=== PATIENT | female | born 1995 | race Caucasian/White ===

== ENCOUNTER 2024-09-09 09:03 | Outpatient (AMB) | payer OTHER, SELFPAY ==
--- NOTE | 2024-09-09 09:05 | A.OFFVIS_ITS ---
Vital Signs 09/09/24 09:08 Height 5 ft Weight 127 lb BMI 24.8 BP 118/68 Blood Pressure Location Lt brachial Position Sitting Pulse 69 Pulse Source Pulse Oximeter Pulse Oximetry (%) 98 Oxygen Delivery Method Room Air Intake Visit Reasons: RA Intake Note: Patient presents for follow up on RA. Allergies wheat Allergy (Mild, Verified 09/09/24 09:09) Stomach Upset gluten intolerance Allergy (Mild, Uncoded 09/09/24 09:09) Stomach Upset HPI HPI RA: Details: She has not had Humira in a few weeks. She is running low on methotrexate. She recently has not had any flares. She had a mild cold 2-3 weeks ago. Review of Systems Const All systems reviewed & are unremarkable except as noted in HPI and below Physical Exam Vital Signs: Last Vital Signs Pulse 69 09/09/24 09:08 BP 118/68 09/09/24 09:08 Pulse Ox 98 09/09/24 09:08 Oxygen Delivery Method Room Air 09/09/24 09:08 BMI result Body Mass Index 24.8 Const Other: General: Comfortable CVS: RRR Respiratory: clear to auscultation bilaterally. Good respiratory effort Skin: No lesions seen MSK: No tenderness of any joint. No synovitis. Good range of motion of upper extremities and lower extremities. Assessment & Plan Assessment & Plan (1) Rheumatoid arthritis: Comment: Seropositive. Previously she was treated with hydroxychloroquine from 2019 to 03/20/2024, methotrexate 2021October 2021 ran out of prescription then restarted 10/21/2023 to present, Humira started 03/20/2023 to present. She is currently in remission on current regimen. She ran out of Humira few weeks ago. Code(s): M06.9 - Rheumatoid arthritis, unspecified Category: Medical Plan: Labs for disease and drug monitoring ordered on high-risk medication Continue Humira 40 mg every other week Continue methotrexate 20 mg once weekly continue folic acid 1 mg daily Return to clinic in 3 months (2) Other manager long term care (current) drug therapy: Code(s): Z79.899 - Other half-way (current) drug therapy Category: Medical Plan: See above Medications: New folic acid 1 mg PO DAILY 90 tabs 3RF adalimumab (Humira(CF) Pen) inject one - 40 mg/0.4 mL pen every 2 weeks subcut PA needed. Continuity of treatment 2 ea 2RF Coding Level of Care Code Est Pt Level 4 (70628) Complex EM visit Add On G2211 Diagnoses Rheumatoid arthritis M06.9 Other manager long term care (current) drug therapy Z79.899
[2024-09-09 09:08] VITALS: BP 118/68; PULSE 69; O2SAT 98; BMI 24.8
== END 2024-09-09 09:40 | disposition home or self-care (01) ==
PROVIDERS: Visit Provider Internal Medicine Rheumatology
DX: M06.9 Rheumatoid arthritis, unspecified (principal); Z79.899 Other long term (current) drug therapy
CPT/HCPCS: 99214

== ENCOUNTER 2024-09-09 09:03 | Outpatient (REF) | payer OTHER, SELFPAY ==
[2024-09-09 18:13] LABS: MANUAL DIFF FLAG NO
[2024-09-09 18:29] LABS: Rheumatoid Factor 42.3 IU/mL (<15.0)
[2024-09-09 18:30] LABS: Basophils Absolute Auto 0.1 X10*3/uL (0.0-0.2); Basophils Percent Auto 1.3 % (0-2); Eosinophils Absolute Auto 0.4 X10*3/uL (0.0-0.4); Eosinophils Percent Auto 9.8 % (0-4); Hematocrit 35.2 % (37.0-47.0); Hemoglobin 11.2 g/dl (12.0-16.0); Lymphocytes Absolute Auto 1.3 X10*3/uL (1.2-4.9); Lymphocytes Percent Auto 32.6 % (20-40); Mean Corpuscular HGB Conc 31.8 g/dl (31.0-35.0); Mean Corpuscular Hemoglobin 27.5 pg (27.0-33.0); Mean Corpuscular Volume 86.3 fL (80.0-98.0); Mean Platelet Volume 9.2 fL (9.4-12.3); Monocytes Absolute Auto 0.3 X10*3/uL (0.1-1.2); Monocytes Percent Auto 8.7 % (2-11); Neutrophils Absolute Auto 1.9 x10*3/uL (2.0-8.3); Neutrophils Percent Auto 47.6 % (45-73); Platelet Count 321 X10*3/uL (160-400); Red Blood Count 4.08 X10*6/uL (4.20-5.50); Red Cell Distribution Width 14.1 % (11.0-16.0); White Blood Count 3.9 X10*3/uL (4.8-10.8)
[2024-09-09 18:33] LABS: Alanine Aminotransferase 10 U/L (0-31); Aspartate Amino Transferase 19 U/L (5-31); C Reactive Protein < 0.04 mg/dL (< or = 0.50); Estimated Glomerular Filt Rate > 60
[2024-09-09 19:37] LABS: Erythrocyte Sedimentation Rate 12 MM/HR (0-20)
[2024-09-10 08:08] LABS: HBS Num1 13.33 mIU/mL (0-7.99); HBsAGNum1 0.44 S/CO (0.00-0.99); Hepatitis B Surface Antigen Negative (Negative); ~Hepatitis B Surface Antibody REACTIVE (Nonreactive)
[2024-09-10 08:59] LABS: HBc Num1 0.19 S/CO (0.00-0.79); Hepatitis B Core Antibody Nonreactive (Nonreactive); ~HepC Num1 0.16 S/CO (0.00-0.79); ~Hepatitis C Antibody Nonreactive (Nonreactive)
[2024-09-12 14:59] LABS: TS Negative Control Passed; TS Panel A 0; TS Panel B 0; TS Positive Control Passed; TSpotTB Negative (Negative)
[2024-09-14 21:13] LABS: Cyclic Citrullinated Peptide >250 UNITS
== END 2024-09-09 09:04 | disposition home or self-care (01) ==
LOC: HO.HKASLDS 09:03
PROVIDERS: Visit Provider Internal Medicine Rheumatology
DX: M06.9 Rheumatoid arthritis, unspecified (principal)
CPT/HCPCS: 36415; 82565; 84450; 84460; 85025; 85652; 86140; 86200; 86431; 86481; 86704; 86706; 86803; 87340

== ENCOUNTER 2024-12-31 09:47 | Outpatient (REF) | payer OTHER, SELFPAY ==
--- OUTSIDE RECORDS SUMMARY | 2024-12-31 10:33 | XMS_ITS | Encounter Summary ---
[facility] Address [address] [place] [address] Care Team Providers Care Firewall Engineer Name Role Phone Jessica Sigala MD Primary Care Provider Kaci Toth DO Primary Care Pro vider Unavailable Ruby Campbell MD Primary Care Provider Luz Marina Simpson MD Primary Care Provider [phone] Nilesh Oneal MD Primary Care Provider Encounter Details Date Type Department Care Team Description 07/09/2011 Sewing Trimmer Report Medical Records [address] [place] [address] Bakari Mendenhall Social History Tobacco Use Types Packs/Day Years Used Date Smoking Tobacco: Never Smokeless Tobacco: Never Alcohol Use Standard Drinks/Week Comments Not Asked 0 (1 standard drink = 0.6 oz pur e alcohol) Sex Assigned at Date Recorded Female 10/13/2020 12:25 PM EST Job Start Date Occupation Industry Not on file Not on file Not on file documented as of this encounter Plan of Treatment Not on file documented as of this encounter Visit Diagnoses Not on filedocumented in this encounter Care Teams Firewall Engineer Relationship Specialty Start Date End Date Jessica Sigala MD PCP - General 07/12/02 06/25/15 Kaci Kern DO PCP - General Internal Medicine 06/26/15 07/19/21 Ruby Campbell MD PCP - General Internal Medicine 07/20/21 04/07/22 Luz Marina Tapia MD [address] [place] [address] PCP - General Internal Medicine 04/08/22 06/05/22 Nilesh Oneal MD [address] [place] [address] PCP - General Internal Medicine 06/06/22 documented as of this encounter
--- OUTSIDE RECORDS SUMMARY | 2024-12-31 10:33 | XMS_ITS | Encounter Summary ---
[facility] Address [address] [place] [address] Care Team Providers Care Manager Drug Name Role Phone Jessica Sigala MD Primary Care Provider Kaci Toth DO Primary Care Pro vider Unavailable Ruby Campbell MD Primary Care Provider Luz Marina Simposn MD Primary Care Provider [phone] Nilesh Oneal MD Primary Care Provider Encounter Details Date Type Department Care Team Description 06/17/2011 Release of Information Medical Records [address] [place] [id number] Abstract, Provider Social History Tobacco Use Types Packs/Day Years [...] on filedocumented in this encounter Care Teams Manager Drug Relationship Specialty Start Date End Date Jessica Sigala MD PCP - General 07/12/02 06/25/15 Kaci Kern DO PCP - General Internal Medicine 06/26/15 07/19/21 Ruby Campbell MD PCP - General Internal Medicine 07/20/21 04/07/22 Luz Marina Tapia MD [address] [place] [address] PCP - General Internal Medicine 04/08/22 06/05/22 Nilesh Oneal MD [address] [place] [address] PCP - General Internal Medicine 06/06/22 documented as of this encounter
--- OUTSIDE RECORDS SUMMARY | 2024-12-31 10:33 | XMS_ITS | Encounter Summary ---
Author Organization [facility] Address [address] [place] [address] Care Team Providers Care Vice President Risk Management Name Role Phone Kaci Kern DO Primary Care Pro vider Unavailable Ruby Campbell MD Primary Care Provider Luz Marina Simpson MD Primary Care Provider Nilesh Oneal MD Primary Care Provider Encounter Details Date Type Department Care Team Description 10/31/2015 Pt. Referral Request [facility]em [address] [place] [address] [id number] Md Cem Social History Tobacco Use Types Packs/Day Years Used Date Smoking Tobacco: Never Smokeless Tobacco: Never Alcohol Use Standard Drinks/Week Comments No 0 (1 standard drink = 0.6 oz pur e alcohol) Sex Assigned at Date Recorded Female 10/13/2020 12:25 PM EST Job Start Date Occupation Industry Not on file Not on file Not on file documented as of this encounter Plan of Treatment Not on file documented as of this encounter Visit Diagnoses Not on filedocumented in this encounter Care Teams Vice President Risk Management Relationship Specialty Start Date End Date Kaci Kern DO PCP - General Internal Medicine 06/26/15 07/19/21 Ruby Campbell MD PCP - General Internal Medicine 07/20/21 04/07/22 Luz Marina Tapia MD [address] [place] [address] PCP - General Internal Medicine 04/08/22 06/05/22 Nilesh Oneal MD [address] [place] [address] PCP - General Internal Medicine 06/06/22 documented as of this encounter
--- OUTSIDE RECORDS SUMMARY | 2024-12-31 10:33 | XMS_ITS | Encounter Summary ---
[facility] Address [address] [place] [address] Care Team Providers Care Thermocouple Tester Name Role Phone Jessica Sigala MD Primary Care Provider Kaci Toth DO Primary Care Pro vider Unavailable Ruby Campbell MD Primary Care Provider Luz Marina Simpson MD Primary Care Provider [phone] Nilesh Oneal MD Primary Care Provider Encounter Details Date Type Department Care Team Description 04/30/2013 Mosaic Worker Report Medical Records [address] [place] [address] Jaycob Roman Social History Tobacco Use Types Packs/Day Years [...] on filedocumented in this encounter Care Teams Thermocouple Tester Relationship Specialty Start Date End Date Jessica Sigala MD PCP - General 07/12/02 06/25/15 Kaci Kern DO PCP - General Internal Medicine 06/26/15 07/19/21 Ruby Campbell MD PCP - General Internal Medicine 07/20/21 04/07/22 Luz Marina Tapia MD [address] [place] [address] PCP - General Internal Medicine 04/08/22 06/05/22 Nilesh Oneal MD [address] [place] [address] PCP - General Internal Medicine 06/06/22 documented as of this encounter
--- OUTSIDE RECORDS SUMMARY | 2024-12-31 10:34 | XMS_ITS | Encounter Summary ---
[facility] Address [address] [place] [address] Care Team Providers Care Property Economist Name Role Phone Kaci Kern DO Primary Care Pro vider Ruby Brambila MD Primary Care Provider Luz Marina Simpson MD Primary Care Provider [phone] Nilesh Oneal MD Primary Care Provider Reason for Visit * Reason Comments E-prescribe Rx Request Encounter Details Date Type Department Care Team Description 02/20/2019 Refill Adult Medicine [address] [address] Angélica Archer PA-C E-prescribe Rx Request Social History Tobacco Use Types Packs/Day Years Used Date Smoking Tobacco: Never Smokeless Tobacco: Never Alcohol Use Standard Drinks/Week Comments Yes 0 (1 standard drink = 0.6 oz pur e alcohol) occ Sex Assigned at Date Recorded Female 10/13/2020 12:25 PM EST Job Start Date Occupation Industry Not on file Not on file Not on file documented as of this encounter Miscellaneous Notes * Telephone Encounter - Deborah Carlisle - 02/22/2019 9:55 AM EDT Patient would like script to be: E-PRESCRIBED/FAXED TO PHARMACY WHEN WAS THE PATIENT'S LAST APPOINTMENT IN ADULT MEDICINE? 2-- WHEN WAS THE LAST TIME THE PATIENT SAW THEIR PCP? N/a Does patient have an upcoming appointment? No-unable to reach left voicemaill to call for appointment due to refill request. Appt due (THE MEDICATION REQUESTED IS ON THE MED LIST ABOVE) All of the medications requested were on the CURRENT MEDS list Did you check the Pharmacy information above?: YES Patient wants: 30 -day supply Is this a mail order prescription request ? NO If the refill is from a FAXED refill request what is the RX # listed on the fax? N/A Patients current insurance carrier is: Payor: [facility]/[employer] FFS / Plan: [employer] $25 [employer] [id number] / ProductType: [employer] [id number] documented in this encounter Plan of Treatment Not on file documented as of this encounter Visit Diagnoses Not on filedocumented in this encounter Care Teams Property Economist Relationship Specialty Start Date End Date Kaci Kern DO PCP - General Internal Medicine 06/26/15 07/19/21 Ruby Campbell MD PCP - General Internal Medicine 07/20/21 04/07/22 Luz Marina Tapia MD [address] [place] [address] PCP - General Internal Medicine 04/08/22 06/05/22 Nilesh Oneal MD [address] [place] [phone] PCP - General Internal Medicine 06/06/22 documented as of this encounter
--- OUTSIDE RECORDS SUMMARY | 2024-12-31 10:34 | XMS_ITS | Encounter Summary ---
Author Organization [facility] Address [address] [place] [address] Care Team Providers Care Technical Communicator Name Role Phone Nilesh Oneal MD Primary Care Provider Encounter Details Date Type Department Care Team Description 10/16/2023 Run Boat Operator Report Medical Records [address] [place] [address] Alvino Baires MD Social History Tobacco Use Types Packs/Day Years [...] on filedocumented in this encounter Care Teams Technical Communicator Relationship Specialty Start Date End Date Nilesh Oneal MD [address] [place] [address] PCP - General Internal Medicine 06/06/22 documented as of this encounter
--- OUTSIDE RECORDS SUMMARY | 2024-12-31 10:34 | XMS_ITS | Encounter Summary ---
Author Organization [facility] Address [address] [place] [address] Care Team Providers Care Rn Labor Delivery Name Role Phone Nilesh Oneal MD Primary Care Provider Encounter Details Date Type Department Care Team Description 01/17/2023 Refill Adult Medicine [facility] [address] [place] [address] Nilesh Oneal MD [address] [place] [address] Social History Tobacco Use Types Packs/Day Years [...] encounter Miscellaneous Notes * Telephone Encounter - Nataliya Lacy M.A. - 01/17/2023 10:48 AM EDT Response sent to schedule prior to processing refill request, await reply to route accordingly. documented in this encounter Plan of Treatment Not on file documented as of this encounter Visit Diagnoses Not on filedocumented in this encounter Care Teams Rn Labor Delivery Relationship Specialty Start Date End Date Nilesh Oneal MD [address] [place] [phone] PCP - General Internal Medicine 06/06/22 documented as of this encounter
--- OUTSIDE RECORDS SUMMARY | 2024-12-31 10:34 | XMS_ITS | Encounter Summary ---
Author Organization [facility] Address [address] [place] [address] Care Team Providers Care Parts Assembler Name Role Phone Kaci Kern DO Primary Care Pro vider Unavailable Ruby Campbell MD Primary Care Provider Luz Marina Simpson MD Primary Care Provider [phone] Nilesh Oneal MD Primary Care Provider Reason for Visit * Reason Onset Date Comments Prior Authorization 05/03/2020 Plaquenil AP PROVED Encounter Details Date Type Department Care Team Description 05/03/2020 Telephone Rheumatology - [address] [address] Javier Peterson MD Prior Authorization (Plaquenil APPROVED) Social History Tobacco Use Types Packs/Day Years [...] encounter Miscellaneous Notes * Telephone Encounter - Feng Kapadia M.A. - 05/03/2020 8:44 AM EDT Plaquenil Tab approved from 05/02/20 to 10/30/20. PA # not provided PA done through [facility] on [employer] ID# [id number] Script to local [place] Papers filed. documented in this encounter Plan of Treatment Not on file documented as of this encounter Visit Diagnoses Diagnosis Seropositive rheumatoid arthritis (HCC) Rheumatoid arthritis documented in this encounter Care Teams Parts Assembler Relationship Specialty Start Date End Date Kaci Kern DO PCP - General Internal Medicine 06/26/15 07/19/21 Ruby Campbell MD PCP - General Internal Medicine 07/20/21 04/07/22 Luz Marina Tapia MD [address] [place] [address] PCP - General Internal Medicine 04/08/22 06/05/22 Nilesh Oneal MD [address] [place] [address] PCP - General Internal Medicine 06/06/22 documented as of this encounter
--- OUTSIDE RECORDS SUMMARY | 2024-12-31 10:34 | XMS_ITS | Encounter Summary ---
Author Organization [facility] Address [address] [place] [address] Care Team Providers Care Progressive Care Unit Registered Nurse Name Role Phone Nilesh Oneal MD Primary Care Provider Encounter Details Date Type Department Care Team Description 12/24/2022 Dubbing Machine Operator Report Medical Records [address] [place] [address] Angela Bello Social History Tobacco Use Types Packs/Day Years [...] on filedocumented in this encounter Care Teams Progressive Care Unit Registered Nurse Relationship Specialty Start Date End Date Nilesh Oneal MD [address] [place] [address] PCP - General Internal Medicine 06/06/22 documented as of this encounter
--- OUTSIDE RECORDS SUMMARY | 2024-12-31 10:34 | XMS_ITS | Encounter Summary ---
Author Organization [facility] Address [address] [place] [address] Care Team Providers Care Track And Field Coach Name Role Phone Jessica Sigala MD Primary Care Provider Kaci Toth DO Primary Care Pro vider Unavailable Ruby Campbell MD Primary Care Provider Luz Marina Simpson MD Primary Care Provider [phone] Nilesh Oneal MD Primary Care Provider Encounter Details Date Type Department Care Team Description 04/13/2015 Engagement Specialist Report Medical Records [address] [place] [address] Jaycob Roman Social History Tobacco Use Types [...] on filedocumented in this encounter Care Teams Track And Field Coach Relationship Specialty Start Date End Date Jessica Sigala MD PCP - General 07/12/02 06/25/15 Kaci Kern DO PCP - General Internal Medicine 06/26/15 07/19/21 Ruby Campbell MD PCP - General Internal Medicine 07/20/21 04/07/22 Luz Marina Tapia MD [address] [place] [address] PCP - General Internal Medicine 04/08/22 06/05/22 Nilesh Oneal MD [address] [place] [address] PCP - General Internal Medicine 06/06/22 documented as of this encounter
--- OUTSIDE RECORDS SUMMARY | 2024-12-31 10:34 | XMS_ITS | Encounter Summary ---
[facility] Address [address] [place] [address] Care Team Providers Care Resident Surgeon Name Role Phone Kaci Kern DO Primary Care Pro vider Ruby Brambila MD Primary Care Provider Luz Marina Simpson MD Primary Care Provider [phone] Nilesh Oneal MD Primary Care Provider Reason for Visit * Reason Comments E-prescribe Rx Request Encounter Details Date Type Department Care Team Description 02/07/2021 Refill Adult Medicine [address] [address] Yuli Gonzalez PA-C E-prescribe Rx Request Social History Tobacco Use Types Packs/Day Years Used Date Smoking Tobacco: Never Smokeless Tobacco: Never Alcohol Use Standard Drinks/Week Comments Yes 0 (1 standard drink = 0.6 oz pur e alcohol) occ Sex Assigned at Date Recorded Female 10/13/2020 12:25 PM EST Job Start Date Occupation Industry Not on file Not on file Not on file COVID-19 Exposure Response Date Recorded In the last month, have you been in contact with someone who was confirmed or suspected to have Coronavirus / COVID-19? No / Unsure 02/05/2021 10:31 AM EDT documented as of this encounter Miscellaneous Notes * Telephone Encounter - Terra Verde M.A. - 02/07/2021 9:42 AM EDT Last office visit 12/08/20 Pt with dx of Asthma * Telephone Encounter - Mary Skaggs - 02/07/2021 8:26 AM EDT Patient would like script to be: E-PRESCRIBED/FAXED TO PHARMACY WHEN WAS THE PATIENT'S LAST APPOINTMENT IN ADULT MEDICINE? 12/08/20 WHEN WAS THE LAST TIME THE PATIENT SAW THEIR PCP? 12/09/19 Does patient have an upcoming appointment? No lmom asking patient to call and schedule follow up (THE MEDICATION REQUESTED IS ON THE MED [...] N/A Patients current insurance carrier is: Payor: [facility] SELF FUNDED / Plan: HMO $25 RON[place] 1500 / Product Type: HMO [id number] documented in this encounter Plan of Treatment Not on file documented as of this encounter Visit Diagnoses Not on filedocumented in this encounter Care Teams Resident Surgeon Relationship Specialty Start Date End Date Kaci Kern DO PCP - General Internal Medicine 06/26/15 07/19/21 Ruby Campbell MD PCP - General Internal Medicine 07/20/21 04/07/22 Luz Marina Tapia MD [address] [place] [address] PCP - General Internal Medicine 04/08/22 06/05/22 Nilesh Oneal MD [address] [place] [address] PCP - General Internal Medicine 06/06/22 documented as of this encounter
--- OUTSIDE RECORDS SUMMARY | 2024-12-31 10:34 | XMS_ITS | Encounter Summary ---
Author Organization [facility] Address [address] [place] [address] Care Team Providers Care Bolt Maker Name Role Phone Kaci Kern DO Primary Care Pro vider Ruby Brambila MD Primary Care Provider Luz Marina Simpson MD Primary Care Provider [phone] Nilesh Oneal MD Primary Care Provider Reason for Visit * Reason Onset Date Comments Neck Pain 11/30/2019 Encounter Details Date Type Department Care Team Description 11/30/[address] [address] Kaci Kern DO Neck Pain Social History Tobacco Use Types Packs/Day Years [...] encounter Miscellaneous Notes * Telephone Encounter - Yuli Dominguez PA-C - 12/01/2019 7:59 AM EDT No other reccomendations. Patient to wait and See Rheumatology. * Telephone Encounter - Jacklyn Maurer R.N. - 11/30/2019 9:02 AM EDT Pt was seen Friday for joint pains , now C/O pain at her left clavicle . Pt has no chest pain, she is not SOB, has not had any N/V/D or fevers , she is able to speak in full sentences and has no audible wheezing or stridor . She has pain when she touches The clavicle or moves her arm , has pain when she lies on the left side , pain was on both sides last night but now is at he left clavicle only, nl CSM in left arm, she has been taking tylenol with little relief Pt to see Rachel broussard on Friday for joint pains in rheumatology Pt to call for any chest pain, SOB, any cough or fever,, Advised home care following the arm pain Protocol. RN reinforced telephone consultation and advice. Reviewed with the patient the signs and symptoms to watch for that would require immediate attention. If symptoms change, worsen or increase in intensity, to call back immediately. Please advise if pt needs any additional recommendations * Telephone Encounter - Silvia Suarez - 11/30/2019 8:36 AM EDT Symptoms patient is having: stiff neck ,collar bone pain For ALL patients calling to schedule any appointment (routine, sick visit, follow up, consult, etc.) in the outpatient setting please ask the following questions. ??? Do you have fever, cough or shortness of breath? NO ??? Have you had close contact with someone with Coronavirus in the last 14 days? NO ??? Have you traveled abroad? NO ??? Have you been to [place] or in contact with anyone who has recently been in [place]? NO If YES to either, send the call to triage and do not book If pain or injury related was it due to an accident at work or from a motor vehicle accident? NO If yes, gather 3rd constitution party insurance information Date of accident/Injury: How long has patient had these symptoms?: one day PCP: Kaci Markham Payor: [employer]/HMO FFS / Plan: HMO $20 [employer] [id number] / Product Type: HMO [id number] documented in this encounter Plan of Treatment Not on file documented as of this encounter Visit Diagnoses Not on filedocumented in this encounter Care Teams Bolt Maker Relationship Specialty Start Date End Date Kaci Kern DO PCP - General Internal Medicine 06/26/15 07/19/21 Ruby Campbell MD PCP - General Internal Medicine 07/20/21 04/07/22 Luz Marina Tapia MD [address] [place] [address] PCP - General Internal Medicine 04/08/22 06/05/22 Nilesh Oneal MD [address] [place] [address] PCP - General Internal Medicine 06/06/22 documented as of this encounter
--- OUTSIDE RECORDS SUMMARY | 2024-12-31 10:34 | XMS_ITS | Encounter Summary ---
Author Organization [facility] Address [address] [place] [address] Care Team Providers Care Medical Director/Head Team Physician Name Role Phone Kaci Kern DO Primary Care Pro vider Ruby Brambila MD Primary Care Provider Luz Marina Simpson MD Primary Care Provider [phone] Nilesh Oneal MD Primary Care Provider Reason for Visit * Reason Onset Date Comments refill request 08/16/2020 Encounter Details Date Type Department Care Team Description 08/16/2020 Refill Adult Medicine [address] [address] Kaci Kern DO refill request Social History Tobacco Use Types Packs/Day Years [...] have Coronavirus / COVID-19? No / Unsure 07/17/2020 2:26 PM EST documented as of this encounter Miscellaneous Notes * Telephone Encounter - Terra Verde M.A. - 08/16/2020 12:36 PM EST Pt with hx of asthma * Telephone Encounter - Iraisnel Sandra - 08/16/2020 12:34 PM EST Patient would like script to be: E-PRESCRIBED/FAXED TO PHARMACY WHEN WAS THE PATIENT'S LAST APPOINTMENT IN ADULT MEDICINE? 07/17/20 WHEN WAS THE LAST TIME THE PATIENT SAW THEIR PCP? Never Does patient have an upcoming appointment? No-patient refused appointment, will call back to book appointment (THE MEDICATION REQUESTED IS ON THE MED [...] N/A Patients current insurance carrier is: Payor: [facility] SELF FUNDED / Plan: PPO $25 [place] [employer] 1500 / Product Type: PPO [id number] documented in this encounter Plan of Treatment Not on file documented as of this encounter Visit Diagnoses Not on filedocumented in this encounter Care Teams Medical Director/Head Team Physician Relationship Specialty Start Date End Date Kaci Kern DO PCP - General Internal Medicine 06/26/15 07/19/21 Ruby Campbell MD PCP - General Internal Medicine 07/20/21 04/07/22 Luz Marina Tapia MD [address] [place] [address] PCP - General Internal Medicine 04/08/22 06/05/22 Nilesh Oneal MD [address] [place] [address] PCP - General Internal Medicine 06/06/22 documented as of this encounter
--- OUTSIDE RECORDS SUMMARY | 2024-12-31 10:34 | XMS_ITS | Encounter Summary ---
Author Organization [facility] Address [address] [place] [address] Care Team Providers Care Transporter Driver Name Role Phone Jessica Sigala MD Primary Care Provider Kaci Toth DO Primary Care Pro vider Unavailable Ruby Campbell MD Primary Care Provider Luz Marina Simpson MD Primary Care Provider [phone] Nilesh Oneal MD Primary Care Provider Reason for Visit * Reason Onset Date Comments Faxed Refill 03/29/2015 Encounter Details Date Type Department Care Team Description 03/29/2015 Refill Pediatrics - [address] [address] Jessica Sigala MD Faxed Refill Social History Tobacco Use Types Packs/Day Years [...] encounter Miscellaneous Notes * Telephone Encounter - Michelle Rascon MD - 03/29/2015 5:02 PM EDT Rx refill sent to pharmacy. Please notify family. * Telephone Encounter - Sera Corley - 03/29/2015 2:58 PM EDT When was patients last PE/WCC? n/a When is patients next PE/WCC scheduled? 06/05/15 Jessica Sigala RX REQUEST WHEN MED IS ON THE LIST: All of the medications requested were on the CURRENT MEDS list Did you check the Pharmacy information above?: YES Indicate how soon the patient needs the script: OK FOR NEXT DAY Patient would like script to be: E-PRESCRIBED/FAXED TO PHARMACY Is the doctor here today?: NO Can the message wait until the doctor returns?: YES Has the patient been told that the prescription will not be filled until the end of the day? YES Jessica Sigala Payor: [facility] [place] / Plan: [employer] [place] $15 / Product Type: HMO [id number] documented in this encounter Plan of Treatment Not on file documented as of this encounter Visit Diagnoses Not on filedocumented in this encounter Care Teams Transporter Driver Relationship Specialty Start Date End Date Jessica Sigala MD PCP - General 07/12/02 06/25/15 Kaci Kern DO PCP - General Internal Medicine 06/26/15 07/19/21 Ruby Campbell MD PCP - General Internal Medicine 07/20/21 04/07/22 Luz Marina Tapia MD [address] [place] [address] PCP - General Internal Medicine 04/08/22 06/05/22 Nilesh Oneal MD [address] [place] [address] PCP - General Internal Medicine 06/06/22 documented as of this encounter
--- OUTSIDE RECORDS SUMMARY | 2024-12-31 10:34 | XMS_ITS | Encounter Summary ---
Author Organization [facility] Address [address] [place] [address] Care Team Providers Care Director Business Development Name Role Phone Kaci Kern DO Primary Care Pro vider Unavailable Ruby Campbell MD Primary Care Provider Luz Marina Simpson MD Primary Care Provider [phone] Nilesh Oneal MD Primary Care Provider Encounter Details Date Type Department Care Team Description 12/29/2019 Loading Supervisor Report Medical Records [address] [place] [id number] Abstract, Provider Social History Tobacco Use Types [...] on filedocumented in this encounter Care Teams Director Business Development Relationship Specialty Start Date End Date Kaci Kern DO PCP - General Internal Medicine 06/26/15 07/19/21 Ruby Campbell MD PCP - General Internal Medicine 07/20/21 04/07/22 Luz Marina Tapia MD [address] [place] [address] PCP - General Internal Medicine 04/08/22 06/05/22 Nilesh Oneal MD [address] [place] [phone] PCP - General Internal Medicine 06/06/22 documented as of this encounter
--- OUTSIDE RECORDS SUMMARY | 2024-12-31 10:34 | XMS_ITS | Encounter Summary ---
Author Organization [facility] Address [address] [place] [address] Care Team Providers Care Narrow Gauge Engineer Name Role Phone Kaci Kern DO Primary Care Pro vider Ruby Brambila MD Primary Care Provider Luz Marina Simpson MD Primary Care Provider [phone] Nilesh Oneal MD Primary Care Provider Reason for Visit * Reason Onset Date Comments refill request 09/02/2018 Encounter Details Date Type Department Care Team Description 09/02/2018 Refill Adult Medicine [address] [address] Kaci Kern DO refill request Social History [...] encounter Miscellaneous Notes * Telephone Encounter - Divya Rodriguez - 09/02/2018 3:13 PM EST Patient would like script to be: E-PRESCRIBED/FAXED TO PHARMACY WHEN WAS THE PATIENT'S LAST APPOINTMENT IN ADULT MEDICINE? 05-29-2016 WHEN WAS THE LAST TIME THE PATIENT SAW THEIR PCP? n/a Does patient have an upcoming appointment? Yes 10-06-2018 (THE MEDICATION REQUESTED IS ON THE MED [...] N/A Patients current insurance carrier is: Payor: [facility]/[employer] FFS / Plan: [employer] $25 [place] [id number] / ProductType: Face++O [id number] documented in this encounter Plan of Treatment Not on file documented as of this encounter Visit Diagnoses Not on filedocumented in this encounter Care Teams Narrow Gauge Engineer Relationship Specialty Start Date End Date Kaci Kern DO PCP - General Internal Medicine 06/26/15 07/19/21 Ruby Campbell MD PCP - General Internal Medicine 07/20/21 04/07/22 Luz Marina Tapia MD [address] [place] [id number] PCP - General Internal Medicine 04/08/22 06/05/22 Nilesh Oneal MD [address] [place] [address] PCP - General Internal Medicine 06/06/22 documented as of this encounter
--- OUTSIDE RECORDS SUMMARY | 2024-12-31 10:34 | XMS_ITS | Encounter Summary ---
Author Organization [facility] Address [address] [place] [address] Care Team Providers Care Oil Well Drilling Manager Name Role Phone Ruby Campbell MD Primary Care Provider Luz Marina Simpson MD Primary Care Provider [phone] Nilesh Oneal MD Primary Care Provider Reason for Visit * Reason Comments E-prescribe Rx Request Encounter Details Date Type Department Care Team Description 01/26/2022 Refill Rheumatology - [address] [address] Ruby Campbell MD E-prescribe Rx Request Social History Tobacco Use [...] encounter Miscellaneous Notes * Telephone Encounter - Ruby Campbell - 01/29/2022 12:55 PM EDT She needs to get this from her rheumatology * Telephone Encounter - Nataliya Lacy M.A. - 01/29/2022 11:35 AM EDT Lab Results Component Value Date NA 137 12/08/2020 K 3.6 12/08/2020 CO2 26 12/08/2020 CL 106 12/08/2020 BUN 9 12/08/2020 CREAT 0.83 07/19/2021 GLU 89 12/08/2020 CA 8.5 12/08/2020 GFR > 60 07/19/2021 JHONY 12/08/20- patient was due to f/u in 4 weeks for headaches Medication last dispensed from refills on file was on 12/23/21 - 30 day supply NOV 03/28/22 - NEW to PCP *Pharmacy refill request, please review for refill appropriateness. Thank you * Telephone Encounter - Reva Crowder - 01/29/2022 9:48 AM EDT Patient would like script to be: E-PRESCRIBED/FAXED TO PHARMACY WHEN WAS THE PATIENT'S LAST APPOINTMENT IN ADULT MEDICINE? 12/08/2020 WHEN WAS THE LAST TIME THE PATIENT SAW THEIR PCP? Pt has not seen new pcp Does patient have an upcoming appointment? Yes 03/28/2022 (THE MEDICATION REQUESTED IS ON THE MED LIST ABOVE) All of the medications requested were on the CURRENT MEDS list Did you check the Pharmacy information above?: YES Patient wants: 45 -day supply Is this a mail order prescription request ? NO If the refill is from a FAXED refill request what is the RX # listed on the fax? N/A Patients current insurance carrier is: Payor: [employer] / Plan: PPO $25 [place] 1500 / Product Type: PPO [id number] documented in this encounter Plan of Treatment Not on file documented as of this encounter Visit Diagnoses Diagnosis Seropositive rheumatoid arthritis (HCC) Rheumatoid arthritis documented in this encounter Care Teams Oil Well Drilling Manager Relationship Specialty Start Date End Date Ruby Campbell MD PCP - General Internal Medicine 07/20/21 04/07/22 Luz Marina Tapia MD [address] [place] [id number] PCP - General Internal Medicine 04/08/22 06/05/22 Nilesh Oneal MD [address] [place] [id number] PCP - General Internal Medicine 06/06/22 documented as of this encounter
--- OUTSIDE RECORDS SUMMARY | 2024-12-31 10:34 | XMS_ITS | Clinical Summary ---
Author Organization [facility] Address [address] [place] [address] Care Team Providers Care Interactive Project Manager Name Role Phone Nilesh Oneal MD Primary Care Provider Allergies Active Allergy Reactions Severity Noted Date Comments Wheat 03/05/2006 Medications Medication Sig Dispensed Refills Start Date End Date Status Jonathan, 2 Pen, 40 MG/0.4ML Pen-injector Kit 0 09/02/2023 Active ALBUTEROL SULFATE 108 (90 Base) MCG/ACT Aero SolnIndications:Mil d persistent asthma without complication Inhale 2 Puffs into the lungs every 4 hours as needed for Cough or Wheezing. 8.5 g 1 05/26/2024 Active betamethasone valerate (VALISONE) 0.1 % ointment Apply sparringly to hands up to twice daily for no more than 2 weeks at at time. 30 g 0 05/26/2024 06/15/2025 Active citalopram (CeleXA) 40 MG tabletIndications:A nxiety Take 1 Tablet by mouth daily. 30 Tablet 0 05/26/2024 Active Fluticasone-Salmete rol 500-50 MCG/ACT AEROSOL POWDER,BREATH ACTIVATEDIndication s:Mild persistent asthma without complication Inhale 1 Puff into the lungs 2 times daily. 1 Each 2 05/26/2024 Active levothyroxine (SYNTHROID, LEVOTHROID) 88 MCG tablet Take 1 Tablet by mouth daily. 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 CXR - negative T spot TB negative (Quantiferon TB Gold) Arthritis associated with another disord er 07/15/2014 Arthralgia of multiple joints 05/11/2014 Overview: 05/15, elevated ESR, nl CBC, neg lyme, parvovirus +IgG but neg IgM Rheumatology consult 05/15, prednisone prescribed, labs pending Improved 07/15, recheck 3 months Family history of breast cancer in pam r 04/09/2013 Overview: Mother neg BRCA Asthma 09/17/2006 Overview: persistent, inhaled steroids since 1997, Cromolyn 1998 , now on Advair 500 bid,prevacid till 03/07 neg RAST to dust and animal dander 1998 oral prednisone about 1-2 x a year - 12/06, 12/[address] maguire also has XUAN, s/p fundoplication but now undone trial off prevacid 03/07 Ref to Pedi Surg by Dr Maguire 03/11, seen 04/11, UGI - no reflux, fundoplication intact 05/14 - Dr Maguire decreased advair dose to 250 BID 01/13 - singulair added 04/15 - Dr Maguire - advair 500 BID and singulair Celiac disease 09/17/2006 Overview: dx , dx by family hx,+ antibodies and response to gluten-free diet. No biopsy done. Resolved Problems Problem Noted Date Resolved Date epidermoid cyst 09/17/2006 09/17/2006 Overview: R postauricular, excised Immunizations Name Administration Dates Next Due COVID-19 (Pfizer) Pt Reported 01/05/2021, 021 DTP 11/12/1994, 4,1993,07/30 DTaP 04/27/1998 HIB 11/12/1994, 4,1993,07/30 HPV (Gardasil) 02/12/2011,2010,02/07/2010 Hepatitis B-3 Dose (<19yrs) 02/14/1994, 3,1993 Influenza (> 6 Months) 06/30/2019,2013,09/19/2012,06/14,2010,05/24/2009,07/16/2008 ,08/09/2005,08/02/2004,07/19/2003,1109/1999,06/23/1999,07/25/1997 Influenza Flu (PT Reported) 07/02/2023, 5 Influenza H1N1 Pandemic Flu Vaccine 07/12/2009 Influenza Vaccine-preservati ve Free-quadrivalent 4 Years 07/02/2022,07/20/2021 Influenza Vaccine-quadrivale nt 4 Years Plus 06/26/2017 MMR (Parulqa-Qsnuz-Xffuhrg) 04/28/1998, 5 Meningococcal (Menactra) 12/09/2007 PPD-RBMG 04/02/2017,07/13/2014,02/12/1994 Pneumoccoccal(Adult) Polysac charide PPSV23 06/26/2017 Polio (OPV) 11/12/1994, 4,1993,07/30 TD (STATE SUPPLIED FOR ADULT S AND CHILDREN) 08/02/2004 Tdap 12/15/2008 Varicella 04/05/2009,06/13/1995 Family History Medical History Relation Name Comments Diabetes Maternal Grandfather Cancer of the Breast Maternal Grandmother Diabetes Maternal Grandmother Asthma Mother and M.Aunt CA Breast Mother x2, estrogen-se nsitive, BRCA negative, radiation Celiac Disease Sister 3 Luna Relation Name Status Comments Brother Alive half brother Father Alive Maternal Grandfather Alive Maternal Grandmother Alive Mother Alive Paternal Grandfather Alive Paternal Grandmother Alive Sister 1 Alive - Tarah Sister 2 Alive - Damion osborn Sister 3 Social History Tobacco Use Types Packs/Day Years Used Date Smoking Tobacco: Never Smokeless Tobacco: Never Tobacco Cessation:Counseling Given: Not Answered Alcohol Use Standard Drinks/Week Comments Yes 0 (1 standard drink = 0.6 oz pur e alcohol) occ Sex Assigned at Date Recorded Female 10/13/2020 12:25 PM EST Job Start Date Occupation Industry Not on file Not on file Not on file Last Filed Vital Signs Vital Sign Reading Time Taken Comments Blood Pressure 120/60 09/18/2023 9:59 AM EST Pulse 82 09/18/2023 9:59 AM EST Temperature 36.7 ??C (98 ??F) 09/18/2023 9:59 AM EST Respiratory Rate 16 09/18/2023 9:59 AM EST Oxygen Saturation 99% 03/03/2023 4:22 PM EDT Inhaled Oxygen Concentration - - Weight 55.9 kg (123 lb 3.2 oz) 09/18/2023 9:59 A M EST Height 149.9 cm (4' 11 ) 09/18/2023 9:59 AM EST Body Mass Index 24.88 09/18/2023 9:59 AM EST Plan of Treatment Health Maintenance Due Date Last Done Comments CERVICAL CANCER SCREENING 02/03/2021 02/03/2018, 09/2014 Covid-19 Vaccine (2022- 4 season) 2024 01/05/2021, 12/06/2020 INFLUENZA (Season Ended) 2025 023, 07/02/2022, 07/20/2021, Additional history exists BASELINE HEALTH EXAM 18-39 08/22/202708/22, 07/02/2022, 10/06/2018, Additional history exists CHOLESTEROL SCREENING 08/22/2027 08/22/2022 , 10/06/2018, 06/26/2017, Additional history exists DTAP/TDAP/TD (7 - Td or Tdap) 02/22/2030, 12/15/2008, 08/02/2004, Additional history exists PNEUMOCOCCAL VACCINE FOR HIG H RISK PATIENTS (#2) 2058 06/26/2017 Care Teams Interactive Project Manager Relationship Specialty Start Date End Date Nilesh Oneal MD [address] [place] [phone] PCP - General Internal Medicine 06/06/22
--- OUTSIDE RECORDS SUMMARY | 2024-12-31 10:34 | XMS_ITS | Encounter Summary ---
Author Organization [facility] Address [address] [place] [address] Care Team Providers Care Manager Decision Support Name Role Phone Kaci Kern DO Primary Care Pro vider Unavailable Ruby Campbell MD Primary Care Provider Luz Marina Simpson MD Primary Care Provider [phone] Nilesh Oneal MD Primary Care Provider Reason for Visit * Reason Comments E-prescribe Rx Request Encounter Details Date Type Department Care Team Description 09/30/2019 Refill OBGYN - [place] [address] [place] [address] [phone] Kira Gaines CNM E-prescribe Rx Request Social History Tobacco Use [...] filedocumented in this encounter Care Teams Manager Decision Support Relationship Specialty Start Date End Date Kaci Kern DO PCP - General Internal Medicine 06/26/15 07/19/21 Ruby Campbell MD PCP - General Internal Medicine 07/20/21 04/07/22 Luz Marina Tapia MD [address] [place] [id number] PCP - General Internal Medicine 04/08/22 06/05/22 Nilesh Oneal MD [address] [place] [address] PCP - General Internal Medicine 06/06/22 documented as of this encounter
--- OUTSIDE RECORDS SUMMARY | 2024-12-31 10:34 | XMS_ITS | Encounter Summary ---
Author Organization [facility] Address [address] [place] [address] Care Team Providers Care Key Sander Name Role Phone Kaci Kern DO Primary Care Pro vider Unavailable Ruby Campbell MD Primary Care Provider Luz Marina Simpson MD Primary Care Provider [phone] Nilesh Oneal MD Primary Care Provider Encounter Details Date Type Department Care Team Description 10/08/2019 Release of Information Medical Records [address] [place] [id number] Abstract, Provider Social History Tobacco Use Types [...] on filedocumented in this encounter Care Teams Key Sander Relationship Specialty Start Date End Date Kaci Kern DO PCP - General Internal Medicine 06/26/15 07/19/21 Ruby Campbell MD PCP - General Internal Medicine 07/20/21 04/07/22 Luz Marina Tapia MD [address] [place] [address] PCP - General Internal Medicine 04/08/22 06/05/22 Nilesh Oneal MD [address] [place] [address] PCP - General Internal Medicine 06/06/22 documented as of this encounter
[2024-12-31 13:14] LABS: MANUAL DIFF FLAG NO
[2024-12-31 13:50] LABS: Basophils Absolute Auto 0.1 X10*3/uL (0.0-0.2); Eosinophils Absolute Auto 0.2 X10*3/uL (0.0-0.4); Eosinophils Percent Auto 3.8 % (0-4); Hematocrit 33.4 % (37.0-47.0); Hemoglobin 10.7 g/dl (12.0-16.0); Imm Gran Abs Auto 0.02 X10*3/uL (0.00-0.03); Imm Gran Pct Auto 0.3 % (0.0-0.4); Lymphocytes Absolute Auto 1.3 X10*3/uL (1.2-4.9); Lymphocytes Percent Auto 22.2 % (20-40); Mean Corpuscular Hemoglobin 27.9 pg (27.0-33.0); Mean Platelet Volume 9.2 fL (9.4-12.3); Monocytes Absolute Auto 0.6 X10*3/uL (0.1-1.2); Monocytes Percent Auto 10.9 % (2-11); Neutrophils Absolute Auto 3.6 x10*3/uL (2.0-8.3); Neutrophils Percent Auto 61.8 % (45-73); Platelet Count 350 X10*3/uL (160-400); Red Blood Count 3.84 X10*6/uL (4.20-5.50); Red Cell Distribution Width 13.7 % (11.0-16.0); White Blood Count 5.8 X10*3/uL (4.8-10.8)
[2024-12-31 13:53] LABS: Alanine Aminotransferase 11 U/L (0-31); Albumin Level 4.3 g/dL (3.5-5.0); Alkaline Phosphatase 77 U/L (39-117); Anion Gap 10 (12-20); Aspartate Amino Transferase 24 U/L (5-31); Bilirubin Total 0.8 mg/dL (0.0-1.0); Blood Urea Nitrogen 10 mg/dL (9-16); Calcium 8.9 mg/dL (8.4-10.2); Carbon Dioxide 27 mmol/L (22-29); Chloride 106 mmol/L (96-108); Estimated Glomerular Filt Rate > 60; Glucose Random 83 mg/dL (60-115); Sodium 139 mmol/L (135-145); Total Protein 7.6 g/dL (6.5-8.0)
[2024-12-31 14:23] LABS: Erythrocyte Sedimentation Rate 33 MM/HR (0-20)
== END 2024-12-31 09:48 | disposition home or self-care (01) ==
LOC: HO.HMGCLDS 09:47
PROVIDERS: PCP Internal Medicine; Visit Provider Internal Medicine Rheumatology
DX: M06.9 Rheumatoid arthritis, unspecified (principal); Z79.899 Other long term (current) drug therapy
CPT/HCPCS: 36415; 80053; 85025; 85652; 86140

== ENCOUNTER 2025-03-16 10:50 | Outpatient (REF) | payer OTHER, SELFPAY ==
[2025-03-16 13:57] LABS: MANUAL DIFF FLAG NO
[2025-03-16 14:05] LABS: Hematocrit 32.8 % (37.0-47.0); Hemoglobin 10.6 g/dl (12.0-16.0); Imm Gran Abs Auto 0.01 X10*3/uL (0.00-0.03); Imm Gran Pct Auto 0.2 % (0.0-0.4); Lymphocytes Absolute Auto 1.6 X10*3/uL (1.2-4.9); Mean Corpuscular HGB Conc 32.3 g/dl (31.0-35.0); Mean Corpuscular Hemoglobin 27.9 pg (27.0-33.0); Mean Corpuscular Volume 86.3 fL (80.0-98.0); NRBC Abs Auto 0.000 X10*3/uL (0.0-0.012); NRBC Pct Auto 0.0 /100WBC (0.0-0.2); Platelet Count 344 X10*3/uL (160-400); Red Blood Count 3.80 X10*6/uL (4.20-5.50); White Blood Count 5.3 X10*3/uL (4.8-10.8)
[2025-03-16 14:38] LABS: Alanine Aminotransferase 10 U/L (0-31); Aspartate Amino Transferase 17 U/L (5-31); Estimated Glomerular Filt Rate > 60
== END 2025-03-16 10:51 | disposition home or self-care (01) ==
LOC: HO.HKASLDS 10:50
PROVIDERS: PCP Internal Medicine; Visit Provider Internal Medicine Rheumatology
DX: M05.79 Rheumatoid arthritis with rheumatoid factor of multiple sites without organ or systems involvement (principal); Z79.899 Other long term (current) drug therapy; Z79.620 Long term (current) use of immunosuppressive biologic; Z79.631 Long term (current) use of antimetabolite agent
CPT/HCPCS: 36415; 82565; 84450; 84460; 85025; 85652; 86140

== ENCOUNTER 2025-03-16 10:50 | Outpatient (AMB) | payer OTHER, SELFPAY ==
[2025-03-16 10:54] VITALS: BP 118/64; PULSE 64; O2SAT 98; BMI 24.3
--- NOTE | 2025-03-16 10:54 | MHC.OFFVIS ---
Vital Signs 03/16/25 10:54 Height 5 ft Weight 124 lb 8 oz BMI 24.3 BP 118/64 Blood Pressure Location Lt brachial Position Sitting Pulse 64 Pulse Source Pulse Oximeter Pulse Oximetry (%) 98 Oxygen Delivery Method Room Air Intake Visit Reasons: 3 mo follow up Intake Note: Patient presents for follow up on RA. Allergies wheat Allergy (Mild, Verified 03/16/25 10:57) Stomach Upset gluten intolerance Allergy (Mild, Uncoded 03/16/25 10:57) Stomach Upset HPI HPI 3 mo follow up: Details: She is doing well. No recent infections. No recent flares. Physical Exam Vital Signs: Last Vital Signs Pulse 64 03/16/25 10:54 BP 118/64 03/16/25 10:54 Pulse Ox 98 03/16/25 10:54 Oxygen Delivery Method Room Air 03/16/25 10:54 BMI result Body Mass Index 24.3 Assessment & Plan Assessment & Plan (1) Rheumatoid arthritis: Comment: In remission on current regimen. Rheumatology history: Seropositive (RF and CCP). Previously she was treated with hydroxychloroquine from 2019 to 03/20/2024, methotrexate 2021October 2021 ran out of prescription then restarted 10/21/2023 to present, Humira started 03/20/2023 to present. She has flares when she runs out of her DMARD rx responsive to Medrol Dosepak. Code(s): M06.9 - Rheumatoid arthritis, unspecified Category: Medical Qualifiers: Rheumatoid arthritis location: multiple sites Rheumatoid factor presence: with rheumatoid factor Qualified Code(s): M05.79 - Rheumatoid arthritis with rheumatoid factor of multiple sites without organ or systems involvement Plan: Labs for disease and drug monitoring ordered on high-risk medication Continue Humira 40 mg every other week Continue methotrexate 20 mg once weekly continue folic acid 1 mg daily Return to clinic in 3 months (2) Other extermination inspector (current) drug therapy: Code(s): Z79.899 - Other [place] [facility] (current) drug therapy Category: Medical Plan: See above Orders: Orders C Reactive Protein Today M06.9 - Rheumatoid arthritis, unspecified, Z79.899 - Other extermination inspector (current) drug therapy Creatinine Today M06.9 - Rheumatoid arthritis, unspecified, Z79.60 - residential (current) use of unspecified immunomodulators and immunosuppressants, Z79.899 - Other extermination inspector (current) drug therapy Erythrocyte Sedimentation Rate Today M06.9 - Rheumatoid arthritis, unspecified, Z79.899 - Other [facility] (current) drug therapy Alanine Aminotransferase Today M06.9 - Rheumatoid arthritis, unspecified, Z79.60 - residential (current) use of unspecified immunomodulators and immunosuppressants, Z79.899 - Other [facility] (current) drug therapy Complete Blood Count Auto Diff Today M06.9 - Rheumatoid arthritis, unspecified, Z79.60 - residential (current) use of unspecified immunomodulators and immunosuppressants, Z79.899 - Other extermination inspector (current) drug therapy Aspartate Amino Transferase Today M06.9 - Rheumatoid arthritis, unspecified, Z79.60 - residential (current) use of unspecified immunomodulators and immunosuppressants, Z79.899 - Other extermination inspector (current) drug therapy Medications: Refilled adalimumab (Humira(CF) Pen) 40 mg (0.4 mL) subcut Q2W 2 ea 2RF methotrexate sodium 20 mg (8 x 2.5 mg) PO QWEEK 96 tabs 0RF Coding Level of Care Code Est Pt Level 4 (76634) Complex EM visit Add On G2211 Diagnoses Rheumatoid arthritis involving multiple sites with positive rheumatoid factor M05.79 Rheumatoid arthritis location: multiple sites Rheumatoid factor presence: with rheumatoid factor Other [facility] (current) drug therapy Z79.899
--- OUTSIDE RECORDS SUMMARY | 2025-03-16 11:37 | XMS_ITS | Clinical Summary ---
Author Organization [facility] [address] [place] [address] [place] [address] Phone Care Team Providers Care Manufacturing Laborer Name Role Phone Nilesh Oneal MD Primary Care Provider Allergies Active Allergy Reactions Criticality Noted Date Comments Wheat 03/05/2006 Medications albuterol HFA (PROAIR HFA ; PROVENTIL HFA ; VENTOLIN HFA) 90 mcg/actuation inhaler Inhale 2 Puffs into the lungs every 4 hours as needed for Cough or Wheezing. 4 Active adalimumab (Humira,CF, Pen) 40 mg/0.4 mL pen 4 Active methotrexate 2.5 mg tablet Take 1 tablet (2.5 mg total) by mouth 1 (one) time per week 5 Active levothyroxine (SYNTHROID, LEVOTHROID) 88 mcg tablet Take 1 tablet (88 mcg total) by mouth 1 (one) time each day. 90 each 3 5 Active citalopram (CeleXA) 40 mg tabletIndications: Generalized anxiety disorder Take 1 tablet (40 mg total) by mouth 1 (one) time each day. 90 tablet 1 5 Active pantoprazole (PROTONIX) 40 mg EC tablet Take 1 tablet (40 mg total) by mouth 1 (one) time each day. Do not crush, chew, or split. 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 Overview (08/19/2024): 12/19Also positive beta-2 glycoprotein antibody Anemia 12/06/2019 Seropositive rheumatoid arth ritis ([facility] V24, [facility] V28) 12/06/2019 Overview (08/19/2024): Hypothyroidism 10/06/2018 Allergic rhinitis 02/14/2015 Overview (08/19/2024): 01/13 - claritin BID, flonase daily - BID 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 Overview (08/19/2024): 07/15 - 10mm PPD read (was on steroids when planted), 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 CXR - negative T spot TB negative (Quantiferon TB Gold) Arthritis 07/15/2014 Overview (08/19/2024): Arthritis associated with another disorder Arthralgia of multiple joints 05/11/2014 Overview (08/19/2024): 05/15, elevated ESR, nl CBC, neg lyme, parvovirus +IgG but neg IgM Rheumatology consult 05/15, prednisone prescribed, labs pending Improved 07/15, recheck 3 months Asthma 09/17/2006 Overview (08/19/2024): persistent, inhaled steroids since 1997, Cromolyn 1998 [...] 500 BID and singulair Celiac disease 09/17/2006 Overview (08/19/2024): dx , dx by family hx,+ antibodies and response to gluten-free diet. No biopsy done. Resolved Problems Problem Noted Date Diagnosed Date Resolved Date Anxiety 07/02/2022 01/06/2025 Encounters Date Type Department Care Team Description 01/07/2025 Telephone Adult Medicine [address] [phone] Nilesh Oneal MD 01/06/2025 2:00 PM EDT Office Visit Adult Medicine [address] [phone] Nilesh Oneal MD Moderate persistent asthma without complication (Primary Dx); Hypothyroidism, unspecified type; Anemia, unspecified type; Anxiety; Screening for diabetes mellitus (DM); Gastroesophageal reflux disease, unspecified whether esophagitis present; Generalized anxiety disorder; Epitrochlear lymphadenopathy 01/05/2025 Telephone Adult Medicine [address] [phone] Nilesh Oneal MD Follow-up; Heartburn from Last 3 Months Immunizations Name Administration Dates Next Due DTP 11/12/1994, 4,1993,07/30 DTaP (Infanrix) 6wks to less than 7yo 04/27/1998 [id number] (Pentacel) 2mo to less than 5yo 11/12/1994,1993,1993,07/30 H1N1 Inj Preservative Free 07/12/2009 HPV, Quadrivalent 02/12/2011,2010,02/08/20 10 Hepatitis B Pediatric (Enger ix B; Recombivax HB) to less than 20 yo 02/14/1994,1993,1993 Influenza Quadravalent, MDCK , 0.5ml, preservative free (Flucelvax) 6mo and older 07/02/2022,07/20/2021 Influenza Quadravalent, MDCK , 0.5ml, with preservative (Flucelvax) 6mo and older 06/26/2017 Influenza trivalent, 0.5mL, preservative free (Fluarix; FluLaval; Fluzone) ages 6mo and older (Afluria) 3 years and older 06/30/2019,06/17/2014,09/19/2012,06/14,2010,05/24/2009,07/16/2008 ,08/09/2005,08/02/2004,07/19/2003,09/1999,06/23/1999,07/25/1997 Influenza, Unspecified 07/02/2023,06/04/2015 MMR, measles mumps and rubel la Live (Priorix; M-M-R II) 12mo and older 04/28/1998,11/12/1994 Meningococcal MCV4P 12/09/2007 OPV 11/12/1994, 4,1993,07/30 PPD Test 04/02/2017,07/13/2014,02/12/1994 [employer] SARS-CoV-2 COVID-19, mRNA, LNP-S, preservative free 01/05/2021,12/06/2020 Pneumococcal polysaccharide 23 valent (Pneumovax 23) 2yo and older 06/26/2017 Td Tetanus diptheria (Tdvax) 7yo and older 08/02/2004 Tdap Tetanus diptheria acell ular pertussis (Boostrix; Adacel) 7yo and older 12/15/2008 Varicella live (Varivax) 12m o and older 04/05/2009,06/13/1995 Surgical History Surgery Date Site/Laterality Comments OTHER SURGICAL HISTORY 2000 PROCEDURE: [place] RPR EPIGASTRIC HERNIA REDUCIBLE SPX Medical History Medical History Date Comments Unspecified asthma(493.90) 09/17/2006 DX:Un specified asthma(493.90); COMMENT: persistent, inhaled steroids since 1997, Cromolyn 1998 , now on Advair 500 bid, Singulair neg RAST to dust and animal dander 1998 oral prednisone about 1-2 x a year followed by dr maguire also has XUAN Esophageal reflux 09/17/2006 DX:Esophageal reflux; COMMENT: Gabriel fundoplication on zantac 1998, prilosec [id number], prevacid restarted 04/05 after worsening of asthma and UGI showed Gabriel undone Celiac disease 09/17/2006 DX:Celiac diseas e; COMMENT: dx , dx by family hx,+ antibodies and response to gluten-free diet. No biopsy done. Febrile convulsions (simple) , unspecified DX:Febrile convulsions (simp le), unspecified; COMMENT: ?due to MMR Closed unspecified dislocati on of elbow DX:Closed unspecified disloc ation of elbow; COMMENT: subluxed radial head Sebaceous cyst 09/17/2006 DX:Sebaceous cys t; COMMENT: R postauricular, excised Infectious mononucleosis 09/09 DX:Infe ctious mononucleosis Concussion DX:Concussion; C OMMENT: 06/11 Fracture of finger, left, closed 03/14 DX:Fracture of finger, left, closed; COMMENT: L fifth finger Anxiety DX:Anxiety Hypothyroid DX:Hypothyroid Family History Medical History Relation Name Comments Diabetes Maternal Grandfather Breast cancer Maternal Grandmother Diabetes Maternal Grandmother Asthma Mother and M.Aunt Breast cancer Mother x2, estrogen-s ensitive, BRCA negative, radiation Celiac disease Sister 1 Luna Relation Name Status Comments Brother Alive half brother Father Alive Maternal Grandfather Alive Maternal Grandmother Alive Mother Alive Paternal Grandfather Alive Paternal Grandmother Alive Sister 1 Sister 2 Alive - Traah Sister 3 Alive - Damion osborn Social History Tobacco Use Types Packs/Day Years Used Date Smoking Tobacco: Never Smokeless Tobacco: Never Tobacco Cessation:Counseling Given: Not Answered Alcohol Use Standard Drinks/Week Comments Yes 0 (1 standard drink = 0.6 oz pur e alcohol) Comments Unknown Sex and Gender Information Value Date Recorded Sex Assigned at Not on file Legal Sex Female 2:23 PM EST Gender Identity Not on file Sexual Orientation Not on file Obstetrics History Last Filed Vital Signs Vital Sign Reading Time Taken Comments Blood Pressure 106/69 01/06/2025 1:51 PM EDT Pulse 75 01/06/2025 1:51 PM EDT Temperature 36.6 C (97.8 F) 01/06/2025 1:51 PM EDT Respiratory Rate 16 01/06/2025 1:51 PM EDT Oxygen Saturation - - Inhaled Oxygen Concentration - - Weight 55.8 kg (123 lb) 01/06/2025 1:51 PM EDT Height 152.4 cm (5') 01/06/2025 1:51 PM EDT Body Mass Index 24.02 01/06/2025 1:51 PM EDT Plan of Treatment Upcoming Encounters Date Type Department Care Team (Late st Contact Info) Description 03/21/2025 1:00 PM EDT Consult Gastroenterology - [place] [address] [facility] [address] [place] [phone] Reyna Mcallister PA [address] [facility] [address] [place] [address] 07/13/2025 9:30 AM EST Office Visit Adult Medicine [facility] [address] [place] [phone] Nilesh Oneal MD [address] [place] [address] Health Maintenance Due Date Last Done Comments Pneumococcal Vaccine: Pediatrics (0 to 5 Years) and At-Risk Patients (6 to 49 Years) (2 of 2 - PCV) 06/26/2018 06/26/2017 Cervical Cancer Screening: Pap Smear 02/03/2021 02/03/2018, 02/03/2018, 02/03/2018 Depression Screening 07/31/2022 HIV Screening 07/31/2022 Social Influencers of Health Screening 07/31/2022 COVID-19 Vaccine ( season) 2024 01/05/2021, 12/06/2020, 11/15/2020 Influenza Vaccine (#1) 2025 , 07/02/2022, 07/20/2021, Additional history exists Cholesterol Screening (Lipid Panel) 01/06/2030 01/06/2025, 08/22/2022 DTaP,Tdap,and Td Vaccines (9 - Td or Tdap) 02/22/2030 02/23/2020, 12/15/2008, 08/02/2004, Additional history exists Hepatitis B Vaccines Completed 02/14/1994, 1993, 1993 HIB Vaccines Completed 11/12/1994, 10/30, 1993, Additional history exists IPV Vaccines Completed 11/12/1994, 10/30, 06/20/1994, Additional history exists MMR Vaccines Completed 04/28/1998, 11/12/1994 Meningococcal ACWY Vaccine Aged Out 12/09/2007 N o longer eligible based on patient's age to complete this topic Varicella Vaccines Completed 04/05/2009, 06/13/1995 HPV Vaccines Completed 02/12/2011, 05/02, 02/07/2010 Hepatitis C Screening Completed 09/19/2020 Hepatitis A Vaccines Aged Out No long er eligible based on patient's age to complete this topic Meningococcal B Vaccine Aged Out No l onger eligible based on patient's age to complete this topic RSV Immunization Patients Under 20 months Aged Out No longer eligible based on patient's age to complete this topic Procedures Procedure Name Priority Date/Time Associated Diagnosis Comments CBC WITH AUTO DIFFERENTIAL Routine 01/06/2025 2:29 PM EDT Moderate persistent asthma without complication Anemia, unspecified type CBC AND DIFFERENTIAL Routine 01/06/2025 2:29 PM EDT Moderate persistent asthma without complication Anemia, unspecified type COMPREHENSIVE METABOLIC PANEL Routine 01/06/2025 2:29 PM EDT Anemia, unspecified type LIPID PANEL WITH REFLEX TO DIRECT LDL Routine 01/06/2025 2:29 PM EDT Moderate persistent asthma without complication HEMOGLOBIN A1C Routine 01/06/2025 2:29 PM EDT Screening for diabetes mellitus (DM) THYROID STIMULATING HORMONE WITH REFLEX TO FREE T4 AND FREE T3 Routine 01/06/2025 2:29 PM EDT Hypothyroidism, unspecified type HM HEPATITIS C SCREENING Routine 09/19/2020 PAP SMEAR Routine 02/03/2018 from Last 3 Months or Most Recently Relevant to Health Maintenance Results * Thyroid stimulating hormone with reflex to free t4 and free t3 (01/06/2025 2:29 PM EDT) Pathologist [facility] TSH 3.52 0.40 - 4.00 mcIU/mL LAB CHEMISTRY METHOD 01/06/2025 6:54 PM EDT [facility] Blood Venous blood specimen / Unknown Venipuncture / Unknown 01/06/2025 2:29 PM EDT 01/06/2025 2:29 PM EDT us Nilesh Oneal MD LAB BLOOD ORDERABLES F inal Result [facility] [address] [place] [address], [place] [phone] * Lipid panel with reflex to direct LDL (01/06/2025 2:29 PM EDT) [facility] Cholesterol 133 0 - 200 mg/dL LAB CHEMISTRY METHOD 01/06/2025 6:23 PM EDT [facility] Triglycerides 104 0 - 150 mg/dL LAB CHEMISTRY METHOD 01/06/2025 6:23 PM EDT [facility] HDL 67 >=40 mg/dL LAB CHEMISTRY METHOD 01/06/2025 6:23 PM EDT [facility] LDL Calculated 45 0 - 100 mg/dL LAB CHEMISTRY METHOD 01/06/2025 6:23 PM EDT [facility] VLDL Cholesterol Venkata 20.8 mg/dL LAB CHEMISTRY METHOD 01/06/2025 6:23 PM EDT [facility] Non HDL Chol. (LDL+VLDL) 66 <145 mg/dL LAB CHEMISTRY METHOD 01/06/2025 6:23 PM EDT [facility] Chol/HDL Ratio 2.0 0.0 - 4.4 LAB CHEMISTRY METHOD 01/06/2025 6:23 PM T [facility] Blood Venous blood specimen / Unknown Venipuncture / Unknown 01/06/2025 2:29 PM EDT 01/06/2025 2:29 PM EDT us Nilesh Oneal MD LAB BLOOD ORDERABLES F inal Result [facility] [address] [place] [address], * (ABNORMAL) CBC auto differential (01/06/2025 2:29 PM EDT) WBC 6.4 4.8 - 10.8 K/mcL LAB HEMETOLOGY METHOD 01/06/2025 5:02 PM [facility] RBC 3.80 3.80 - 4.80 M/mcL LAB HEMETOLOGY METHOD 01/06/2025 5:02 PM [facility] Hemoglobin 10.4(L) 11.5 - 16.0 g/dL LAB HEMETOLOGY METHOD 01/06/2025 5:02 PM [facility] Hematocrit 32.8(L) 35.0 - 47.0 % LAB HEMETOLOGY METHOD 01/06/2025 5:02 PM [facility] MCV 87.0 79.0 - 98.0 FL LAB HEMETOLOGY METHOD 01/06/2025 5:02 PM [facility] MCH 27.6 27.0 - 32.0 pcg LAB HEMETOLOGY METHOD 01/06/2025 5:02 PM [facility] MCHC 31.7(L) 32.0 - 37.0 g/dL LAB HEMETOLOGY METHOD 01/06/2025 5:02 PM [facility] RDW 13.7 11.0 - 15.0 % LAB HEMETOLOGY METHOD 01/06/2025 5:02 PM [facility] Platelets 336 130 - 400 K/mcL LAB HEMETOLOGY METHOD 01/06/2025 5:02 PM [facility] MPV 9.1 7.0 - 11.0 FL LAB HEMETOLOGY METHOD 01/06/2025 5:02 PM [facility] NRBC 0.0 <1.0 % LAB HEMETOLOGY METHOD 01/06/2025 5:02 PM [facility] NRBC Absolute 0.00 <0.10 K/mcL LAB HEMETOLOGY METHOD 01/06/2025 5:02 PM [facility] Neutrophils Relative 54.7 % LAB HEMETOLOGY METHOD 01/06/2025 5:02 PM [facility] Lymphocytes Relative 27.4 % LAB HEMETOLOGY METHOD 01/06/2025 5:02 PM [facility] Monocytes Relative 11.7 % LAB HEMETOLOGY METHOD 01/06/2025 5:02 PM [facility] Eosinophils Relative 5.0 % LAB HEMETOLOGY METHOD 01/06/2025 5:02 PM [facility] Basophils Relative 0.9 % LAB HEMETOLOGY METHOD 01/06/2025 5:02 PM [facility] Immature Granulocytes Relative 0.3 % LAB HEMETOLOGY METHOD 01/06/2025 5:02 PM [facility] Neutrophils Absolute 3.49 1.50 - 7.00 K/mcL LAB HEMETOLOGY METHOD 01/06/2025 5:02 PM [facility] Lymphocytes Absolute 1.75 1.00 - 5.00 K/mcL LAB HEMETOLOGY METHOD 01/06/2025 5:02 PM EDT [facility] Monocytes Absolute 0.75 0.20 - 1.00 K/mcL LAB HEMETOLOGY METHOD 01/06/2025 5:02 PM EDT [facility] Eosinophils Absolute 0.32 0.00 - 0.50 K/mcL LAB HEMETOLOGY METHOD 01/06/2025 5:02 PM EDT [facility] Basophils Absolute 0.06 0.00 - 0.20 K/[facility] LAB HEMETOLOGY METHOD 01/06/2025 5:02 PM EDT [facility] Immature Granulocytes Absolute 0.02 0.00 - 0.03 K/mcL LAB HEMETOLOGY METHOD 01/06/2025 5:02 PM EDT [facility] Blood Venous blood specimen / Unknown Venipuncture / Unknown 01/06/2025 2:29 PM EDT 01/06/2025 2:29 PM EDT us Nilesh Oneal MD LAB BLOOD ORDERABLES F inal Result [facility] [address] [place] [address], [place] [phone] * Hemoglobin A1c (01/06/2025 2:29 PM EDT) Hemoglobin A1C 5.1 <6.5 % LAB CHEMISTRY METHOD 01/06/2025 10:18 PM EDT [facility] Mean Bld Glu Estim. 100 mg/dL LAB CHEMISTRY METHOD 01/06/2025 10:18 PM EDT [facility] Blood Venous blood specimen / Unknown Venipuncture / Unknown 01/06/2025 2:29 PM EDT 01/06/2025 2:29 PM EDT us Nilesh Oneal MD LAB BLOOD ORDERABLES F inal Result [facility] [address] [place] [address], * (ABNORMAL) Comprehensive metabolic panel (01/06/2025 2:29 PM EDT) Sodium 139 133 - 145 mmol/L LAB [facility]STR[facility] Potassium 4.4 3.5 - 5.5 mmol/L LAB CHEMISTRY METHOD 01/06/2025 6:23 PM T [facility] Chloride 105 96 - 110 mmol/L LAB CHEMISTRY METHOD 01/06/2025 6:23 PM [facility] CO2 29 21 - 32 mmol/L LAB CHEMISTRY METHOD 01/06/2025 6:23 PM [facility] Anion Gap 5 3 - 11 LAB CHEMISTRY METHOD 01/06/2025 6:23 PM [facility] Glucose 63(L) 70 - 100 mg/dL LAB CHEMISTRY METHOD 01/06/2025 6:23 PM [facility] BUN 13 5 - 25 mg/dL LAB CHEMISTRY METHOD 01/06/2025 6:23 PM [facility] Creatinine 0.68 0.50 - 1.10 mg/dL LAB CHEMISTRY METHOD 01/06/2025 6:23 PM [facility] eGFR 120 >=60 mL/min/1. 73m2 LAB CHEMISTRY METHOD 01/06/2025 6:23 PM [facility] Comment:Calculation based on the Chronic Kidney Disease Epidemiology Collaboration (CKD-EPI) equation refit without adjustment for race. BUN/Creatinine Ratio 19.1 LAB CHEMISTRY METHOD 01/06/2025 6:23 PM [facility] Calcium 8.8 8.5 - 10.5 mg/dL LAB CHEMISTRY METHOD 01/06/2025 6:23 PM [facility] AST (SGOT) 16 10 - 42 unit/L LAB CHEMISTRY METHOD 01/06/2025 6:23 PM EDT [facility] ALT (SGPT) 16 10 - 60 unit/L LAB CHEMISTRY METHOD 01/06/2025 6:23 PM EDT [facility] Alkaline Phosphatase 69 42 - 121 unit/L LAB CHEMISTRY METHOD 01/06/2025 6:23 PM EDT [facility] Total Protein 7.5 6.0 - 8.0 g/dL LAB CHEMISTRY METHOD 01/06/2025 6:23 PM EDT [facility] Albumin 3.7 3.2 - 5.0 g/dL LAB CHEMISTRY METHOD 01/06/2025 6:23 PM EDT [facility] Total Bilirubin 0.3 0.0 - 1.4 mg/dL LAB CHEMISTRY METHOD 01/06/2025 6:23 PM EDT [facility] Blood Venous blood specimen / Unknown Venipuncture / Unknown 01/06/2025 2:29 PM EDT 01/06/2025 2:29 PM EDT Nilesh Oneal MD LAB BLOOD ORDERABLES F inal Result [facility] [address] [place] [address], * Hepatitis C Screening (09/19/2020) Pathologist [facility] Hepatitis C Screening abstracted Historical Provider HEALTH MAINTENANCE Final Result * Pap smear (02/03/2018) 02/03/2018 Narrative HISTORICAL TESTING LAB RESULTING AGENCY - 02/18/2018 10:26 AM EDT [id number] THINPREP PAP, IMAGED: ATYPICAL SQUAMOUS CELLS OF UNDETERMINED SIGNIFICANCE (ASCUS) . RESULTS OF APTIMA HIGH RISK HPV ASSAY: NEGATIVE (SEROTYPES 16,18,31,33,35, 39,45,51,52,56,58,59,66,68) ROSALIO ALVAREZ(ASCP) (CASE SCREENED 02 07 2018) JUWAN MEREDITH M.D., PATHOLOGIST (CASE ELECTRONICALLY SIGNED 02 17 2018) ADEQUACY: SATISFACTORY. ENDOCERVICAL/TRANSFORMATION ZONE COMPONENT PRESENT. SOURCE: THINPREP PAP HPV IF ASCUS, CERVICAL, IMAGED: CLINICAL INFORMATION: HPV IF DIAGNOSIS OF ASCUS. PAP HX NEG, Z12.4 us Fidencio Mccabe CNM LAB CYTOLOGY ORDERA BLES Final Result HISTORICAL TESTING LAB RESULTING AGENCY from Last 3 Months or Most Recently Relevant to Health Maintenance Insurance Care Teams Manufacturing Laborer Relationship Specialty Start Date End Date Nilesh Oneal MD [address] [place] [id number] PCP - General Internal Medicine 01/06/25
== END 2025-03-16 11:17 | disposition home or self-care (01) ==
LOC: HO.RHES 10:51
PROVIDERS: PCP Internal Medicine; Visit Provider Internal Medicine Rheumatology
DX: M05.79 Rheumatoid arthritis with rheumatoid factor of multiple sites without organ or systems involvement (principal); Z79.899 Other long term (current) drug therapy
CPT/HCPCS: 99214; G2211